=== PATIENT | female | born 2005 | race Caucasian/White ===

== ENCOUNTER 2023-03-09 11:04 | Emergency (ER) | payer OTHER, SELFPAY ==
[2023-03-09 11:19] VITALS: BP 121/77; PULSE 97; RESP 16; TEMP 36.5; O2SAT 100
--- NOTE | 2023-03-09 11:35 | ED.ABDPAIN ---
HPI - Abdominal Pain General Chief Complaint: Abdominal Pain Stated Complaint: Abdominal pain;Vaginal discomort;Nausea Source: patient and RN notes reviewed Mode of arrival: ambulatory Limitations: no limitations History of Present Illness HPI narrative: 17-year-old female presented for complaints of intermittent lower abdominal pain, intermittent nausea which she says is worse at night in the morning. Pain and frequent urination wake her from sleeping. Endorses burning at the end of urination. Onset 3 weeks. Endorses concern for ovarian cyst. She denies vomiting, diarrhea, constipation, flank pain, hematuria, fevers or chills; denies concern for std. LMP is current, states she is spotting. Hx appendectomy. Reports eating disorder/anorexia. Related Data Allergies Allergy/AdvReac Type Severity Reaction Status Date / Time amoxicillin Allergy Rash Verified 03/09/23 13:02 diphenhydramine Allergy Hives Verified 03/09/23 13:02 [From Benadryl] Review of Systems Review of Systems: CONSTITUTIONAL: Denies body aches, fever, chills ENT: Denies rhinorrhea, congestion CARDIOVASCULAR: Denies chest pain, palpitations, or edema. RESPIRATORY: Denies cough or dyspnea. GASTROINTESTINAL: Endorses abdominal pain, nausea, Denies vomiting, diarrhea, hematochezia, melena, hematemesis GENITOURINARY: Denies dysuria, hematuria, or CVA tenderness. SKIN: Denies rash, itching, or wounds. MUSCULOSKELETAL: Denies back pain, joint pain, or myalgia. NEUROLOGIC: Denies headache, numbness, tingling, or weakness. All systems reviewed & are unremarkable except as noted in HPI and below PMFSH Past Medical History Medical History Anorexia Headache Menorrhagia Migraine Neck pain Post concussion syndrome Scoliosis deformity of spine Vitamin D deficiency Surgical History Surgical History History of appendectomy Comments At time of signature, I have reviewed and agree with nursing past medical, surgical, social and family history unless otherwise noted. Please see nursing chart for further information. There is no relevant family history pertinent to the presenting complaint Exam Narrative: GENERAL: Well-appearing, and in no acute distress. EYES: EOMI. Conjunctivae normal. ENT: Mucous membranes pink and moist. CHEST: No respiratory distress. Clear to auscultation. HEART: Regular rate and rhythm. No murmur appreciated. Normal peripheral pulses. ABDOMEN: abd soft, nondistended, normal active bowel sounds. RLQ tenderness with palpation. No guarding, rebound tenderness, asymmetry or rigidity. No pulsatile masses. No organomegaly. Negative Bowden?s sign. No periumbilical tenderness. Good femoral pulses bilaterally. No hernia noted. EXTREMITIES: Normal range of motion. No edema. SKIN: Warm, dry, no rash. Capillary refill normal. Normal skin turgor. NEURO: No focal deficits. Alert and oriented x3. PSYCH: Normal affect. Course Course Emergency Course: Patient is aware of diagnosis, understands and agrees to treatment plan. Anticipatory guidance given. Patient agrees to follow-up as directed and is aware of reasons to seek care at the emergency department. Portions of this record may have been created with voice recognition software Level of Care: Express Care Visit Vital Signs Vital signs: Vital Signs Temperature 97.7 F 03/09/23 11:19 Pulse Rate 97 03/09/23 11:19 Respiratory Rate 16 03/09/23 11:19 Blood Pressure 121/77 03/09/23 11:19 Pulse Oximetry 100 03/09/23 11:19 Temperature 97.7 F 03/09/23 11:19 Pulse Rate 97 03/09/23 11:19 Respiratory Rate 16 03/09/23 11:19 Blood Pressure 121/77 03/09/23 11:19 Pulse Oximetry 100 03/09/23 11:19 Transfer Transfered to: [facility] Transportation: Other (Private vehicle) Transfer rationale: Pt is agreeable to transfer. Requests tr
== END 2023-03-09 12:20 | disposition short-term general hospital (02) ==
PROVIDERS: Emergency Provider Nurse Practitioner Family
DX: R10.31 Right lower quadrant pain (principal); M41.9 Scoliosis, unspecified
CPT/HCPCS: 81003; 81025; 87086; 87088; 87147; 99213; G0463

== ENCOUNTER 2023-03-09 12:38 | Emergency (ER) | payer OTHER, SELFPAY ==
--- NOTE | ~2023-03-09 | CT_ITS ---
EXAMINATION: CT abdomen pelvis w con DATE: 03/09/2023 13:50 INDICATION: Right lower quadrant abdominal pain. Menstrual cramping for 2 weeks. History of appendect lashon. TECHNIQUE: Computed tomography (CT) of the abdomen was performed with 100 CC Omnipaque 350 intravenou s contrast. Automated exposure control and iterative reconstruction technique were employed. Exam dos e: 416.76 mGy-cm total exam DLP. COMPARISON: None. FINDINGS: The lung bases are clear. Normal heart size. No pericardial or pleural effusion. The liver, gallbladder, bile ducts, pancreas, pancreatic duct, spleen, and adrenal glands and kidneys appear normal. No urinary tract calculus or hydroureteronephrosis. There is moderate diffuse thickening of the urinary bladder; recommend clinical correlation to exclud e cystitis. The uterus and adnexal areas are unremarkable. Normal caliber of the abdominal aorta. No intraperitoneal or retroperitoneal or pelvic mass lesion or adenopathy or ascites. Status post appendectomy. There are numerous nondilated fluid containing small bowel segments with scattered small bowel air-fl uid levels which may be due to enteritis or mild adynamic ileus. No bowel obstruction or intraperiton eal free air. Included skeletal structures are unremarkable. IMPRESSION: Nondilated fluid distended small bowel with air-fluid levels which may be due to enterit is or mild adynamic ileus; no bowel obstruction or free air Status post appendectomy Reviewed, dictated and finalized at [facility]. Reviewed, dictated and finalized at [facility]. IMPRESSION: Nondilated fluid distended small bowel with air-fluid levels which may be due to enteritis or mild adynamic ileus; no bowel obstruction or free a ir Status post appendectomy
[2023-03-09 12:40] VITALS: BP 120/69; PULSE 65; RESP 18; TEMP 36.2; O2SAT 100
--- NOTE | 2023-03-09 13:00 | ED.ABDPAIN ---
HPI - Abdominal Pain General Chief Complaint: Abdominal Pain Stated Complaint: RLQ abd pain - sent from UC - neg UA and neg preg Time Seen by Provider: 03/09/23 12:59 Source: patient Mode of arrival: ambulatory Limitations: no limitations History of Present Illness HPI narrative: 17 years old white female presents with intermittent right lower quadrant sharp stabbing pain, looks like menstrual cramps, started her. 2 days ago. Without improvement. She denies any fever, chills, nausea, vomiting, diarrhea, constipation, patient reported burning sensation at the end of her urination. Was seen at urgent care today with negative urine test and the . Referred to the emergency room for further evaluation. History of appendectomy. Related Data Allergies Allergy/AdvReac Type Severity Reaction Status Date / Time amoxicillin Allergy Rash Verified 03/09/23 13:02 diphenhydramine Allergy Hives Verified 03/09/23 13:02 [From Benadryl] Review of Systems Review of Systems: All systems reviewed & are unremarkable except as noted in HPI and below PMFSH Past Medical History Medical History Anorexia Headache Menorrhagia Migraine Neck pain Post concussion syndrome Scoliosis deformity of spine Vitamin D deficiency Surgical History Surgical History History of appendectomy Exam Narrative: General appearance: Well-developed, well-nourished Skin: Normal color Head: Normocephalic, nontraumatic Eyes: Clear conjunctiva ENT: Oropharynx normal, ears normal, nose normal Neck: Supple, nontender Chest and respiratory: Airway patent, no respiratory distress, no accessory muscle use Heart: Regular rate/rhythm Abdomen: Soft, slight tenderness to right lower quadrant, no rebound, no guarding no organomegaly, quiet bowel sounds Vascular: Normal peripheral pulses, normal capillary refill. Musculoskeletal: Normal range of motion, nontender back Neurologic: Alert and oriented ?3, FORMULATOR is normal as tested, no gross motor deficit Course Vital Signs Vital signs: Vital Signs Temperature 36.2 C L 03/09/23 12:40 Pulse Rate 65 03/09/23 12:40 Respiratory Rate 18 03/09/23 12:40 Blood Pressure 120/69 03/09/23 12:40 Pulse Oximetry 100 03/09/23 12:40 Oxygen Delivery Room Air 03/09/23 12:40 Temperature 36.2 C L 03/09/23 12:40 Pulse Rate 73 03/09/23 14:31 Respiratory Rate 12 03/09/23 14:31 Blood Pressure 115/71 03/09/23 14:31 Pulse Oximetry 100 03/09/23 14:31 Oxygen Delivery Room Air 03/09/23 12:40 MDM - Abdominal Pain Lab Data 03/09/23 13:01 03/09/23 13:01 Labs: Lab Results 03/09/23 03/09/23 Range/Units 13:01 13:33 WBC 7.2 (4.5-10.0) K/mm3 RBC 4.69 (4.2-5.4) M/mm3 Hgb 12.2 (12.0-15.0) g/dL Hct 38.4 (37.0-47.0) % MCV 81.9 (80-100) fl MCH 26.0 (26-34) pg MCHC 31.8 L (32-36) g/dl RDW 14.6 H (11.5-14.5) % Plt Count 276 (150-375) k/mm3 MPV 10.8 H (7.4-10.4) fl Immature Gran % (Auto) 0.4 (0-0.5) % Neut % (Auto) 60.4 (45.5-73.1) % Lymph % (Auto) 30.5 (18.3-44.2) % Meeker % (Auto) 6.3 (2.6-8.5) % Eos % (Auto) 1.7 (0-4.4) % Baso % (Auto) 0.7 (0.2-1.2) % Lymph # (Auto) 2.19 (0.9-3.2) K/mm3 [place] # (Auto) 0.5 (0.1-0.6) K/mm3 Eos # (Auto) 0.1 (0-0.3) K/mm3 Baso # (Auto) 0.1 (0.0-0.1) K/mm3 Abs Immat Gran (auto) 0.03 (0.00-0.031) K/mm3 Absolute Neuts (auto) 4.3 (1.3-6.7) K/mm3 Absolute Nucleated RBC 0.0 (0.0-0.012) K/mm3 Nucleated RBC % 0.0 (0.0-0.2) % Sodium 140 (134-143) mmol/
[2023-03-09 13:05] VITALS: BP 120/74; PULSE 75; RESP 13; O2SAT 99
[2023-03-09] MEDS: SODIUM CHLORIDE 0.9% IV 1,000 ML 999 ML IV CONT (13:14)
[2023-03-09 13:18] LABS: Alanine Aminotransferase 19 U/L (6-35); Albumin Level 4.7 g/dL (3.7-5.6); Alkaline Phosphatase 73 U/L (45-116); Anion Gap 9 mmol/L (8-16); Aspartate Amino Transferase 33 U/L (14-36); Bilirubin,Total 0.4 mg/dL (0.2-1.3); Blood Urea Nitrogen 8 mg/dL (8-21); Calcium 9.5 mg/dL (8.9-10.7); Carbon Dioxide 26 mmol/L (22-30); Chloride 105 mmol/L (98-107); Estimated CRCL calculation 125 ml/min; Estimated Glomerular Filt Rate > 60; Glucose 93 mg/dL (65-110); Lipase 53 U/L (23-300); Potassium 3.8 mmol/L (3.4-5.0); Sodium 140 mmol/L (134-143)
[2023-03-09 13:48] LABS: Hematocrit 38.4 % (37.0-47.0); Hemoglobin 12.2 g/dL (12.0-15.0); Mean Corpuscular Volume 81.9 fl (80-100); Red Blood Count 4.69 M/mm3 (4.2-5.4); White Blood Count 7.2 K/mm3 (4.5-10.0)
[2023-03-09 13:49] LABS: Basophils Percent Auto 0.7 % (0.2-1.2); Eosinophils Percent Auto 1.7 % (0-4.4); Immature Granulocyte Absolute 0.03 K/mm3 (0.00-0.031); Immature Granulocyte Percent A 0.4 % (0-0.5); Lymphocytes Percent Auto 30.5 % (18.3-44.2); Mean Corpuscular HGB Conc 31.8 g/dl (32-36); Mean Platelet Volume 10.8 fl (7.4-10.4); Monocytes Percent Auto 6.3 % (2.6-8.5); Neutrophils Percent Auto 60.4 % (45.5-73.1); Platelet Count Result 276 k/mm3 (150-375); Red Cell Distribution Width 14.6 % (11.5-14.5)
[2023-03-09 13:50] LABS: Basophils Absolute Auto 0.1 K/mm3 (0.0-0.1); Eosinophils Absolute Auto 0.1 K/mm3 (0-0.3); Lymphocytes Absolute Auto 2.19 K/mm3 (0.9-3.2); Monocytes Absolute Auto 0.5 K/mm3 (0.1-0.6); Neutrophils Absolute Auto 4.3 K/mm3 (1.3-6.7)
[2023-03-09 14:31] VITALS: BP 115/71; PULSE 73; RESP 12; O2SAT 100
[2023-03-09 14:32] LABS: Appearance Urine Clear (Clear); Bilirubin Urine Negative (Negative); Blood Urine Negative (Negative); Color Urine Yellow (Yellow); Glucose Urine UA Negative (Negative); Ketones Urine Negative (Negative); Leukocyte Esterase Ur Negative LEU/UL (Negative); Nitrate Urine Negative (Negative); Protein Urine Negative (Negative); Specific Grav Ur 1.005 (1.001-1.035); Urobilinogen Urine 0.2 mg/dL (<2.0)
[2023-03-09 14:37] LABS: Add Urine Microscopic? NO
== END 2023-03-09 15:48 | disposition home or self-care (01) ==
PROVIDERS: Emergency Provider Emergency Medicine
DX: K52.9 Noninfective gastroenteritis and colitis, unspecified (principal); K56.0 Paralytic ileus; E55.9 Vitamin D deficiency, unspecified; M41.9 Scoliosis, unspecified
CPT/HCPCS: 36415; 74177; 80053; 81003; 81025; 83690; 85025; 87086; 96360; 99213; 99284; G0463; J7030; Q9967

== ENCOUNTER 2023-06-25 12:29 | Emergency (ER) | payer OTHER, SELFPAY ==
[2023-06-25 12:40] VITALS: BP 118/74; PULSE 91; RESP 18; TEMP 36.9; O2SAT 98
--- NOTE | 2023-06-25 13:32 | ED.EYEPROB ---
HPI - Eye Problem General Chief complaint: Eye Problems Stated complaint: Eye Problems Time Seen by Provider: 06/25/23 13:15 Source: patient and RN notes reviewed Mode of arrival: ambulatory Limitations: no limitations History of Present Illness HPI Narrative: Patient presents today complaining of right eye redness and watering. Symptoms initially began 2 weeks ago, but improved after taking her contacts out, then worsened again 3 days ago. Patient has daily contacts, but has been wearing them for extended periods of time. She has had this current pair in for 1 week straight because she is running out and has not been to see an eye doctor in quite some time. She does not have an updated pair of glasses. History of corneal abrasions. Related Data Allergies Allergy/AdvReac Type Severity Reaction Status Date / Time amoxicillin Allergy Rash Verified 06/25/23 13:10 diphenhydramine Allergy Hives Verified 06/25/23 13:10 [From Benadryl] Review of Systems Review of Systems: CONSTITUTIONAL: Denies body aches, fever, chills, or sweats. EYES: + right eye redness and watering, photophobia ENT: Denies rhinorrhea, congestion, sore throat, or otalgia. CARDIOVASCULAR: Denies chest pain, palpitations, or edema. RESPIRATORY: Denies cough or dyspnea. GASTROINTESTINAL: Denies abdominal pain, nausea, vomiting, or diarrhea. GENITOURINARY: Denies dysuria or hematuria. SKIN: Denies rash, itching, or wounds. MUSCULOSKELETAL: Denies back pain, joint pain, or myalgia. NEUROLOGIC: Denies headache, numbness, tingling, or weakness. PSYCH: Denies depression or anxiety. [facility] Past Medical History Medical History Anorexia Headache Menorrhagia Migraine Neck pain Post concussion syndrome Scoliosis deformity of spine Vitamin D deficiency Surgical History Surgical History History of appendectomy Comments At time of signature, I have reviewed and agree with nursing past medical, surgical, social and family history unless otherwise noted. Please see nursing chart for further information. There is no relevant family history pertinent to the presenting complaint Exam Narrative: GENERAL: Well-appearing, well-nourished, and in no acute distress. HEAD: Normocephalic, atraumatic. EYES: EOMI. PERRL. Right eye: Moderately injected conjunctiva with chemosis and watering. Left eye normal. See procedure note ENT: Mucous membranes pink and moist. NECK: Normal AROM. CHEST: No respiratory distress. EXTREMITIES: Normal range of motion. No edema. SKIN: Warm, dry, no rash. Capillary refill normal. Normal skin turgor. NEURO: No focal deficits. Alert and oriented x3. Gait steady. PSYCH: Normal affect. No signs of depression or anxiety. Course Course Level of Care: Express Care Visit Vital Signs Vital signs: Vital Signs Temperature 98.4 F 06/25/23 12:40 Pulse Rate 91 06/25/23 12:40 Respiratory Rate 18 06/25/23 12:40 Blood Pressure 118/74 06/25/23 12:40 Pulse Oximetry 98 06/25/23 12:40 Oxygen Delivery Room Air 06/25/23 12:40 Temperature 98.4 F 06/25/23 12:40 Pulse Rate 91 06/25/23 12:40 Respiratory Rate 18 06/25/23 12:40 Blood Pressure 118/74 06/25/23 12:40 Pulse Oximetry 98 06/25/23 12:40 Oxygen Delivery Room Air 06/25/23 12:40 Reviewed Procedures Other Procedure Procedure 1: Other Procedure: Right eye was anesthetized with 1 drop of tetracaine and anesthesia was achieved. The eye was flushed with eye wash. Lid was inverted and examined. Moistened Qtip was used to sweep underneath the upper eyelid with 0 foreign bodies resulting. Cornea was dyed with fluorescein and 0 abrasions or ulcerations were noted. Pt tolerated procedure well. MDM - Eye Problem MDM Narrative Medical decision making narrative: No obvious corneal abrasion. Will treat
== END 2023-06-25 13:41 | disposition home or self-care (01) ==
PROVIDERS: Emergency Provider Nurse Practitioner
DX: H10.31 Unspecified acute conjunctivitis, right eye (principal)
CPT/HCPCS: 99213; A9270; G0463

== ENCOUNTER 2025-01-01 08:28 | Emergency (ER) | payer OTHER, SELFPAY ==
[2025-01-01 08:36] VITALS: BP 113/55; PULSE 118; RESP 16; TEMP 37.4; O2SAT 99
--- NOTE | 2025-01-01 08:44 | ED.URI ---
HPI - URI/Sore Throat General Chief Complaint: Upper Respiratory Infection Stated Complaint: SORE THROAT/SWOLLEN TONSILS/BODY ACHES/TIRED/MAR Time Seen by Provider: 01/01/25 08:44 History of Present Illness HPI Narrative: Twenty complaint sore throat, body aches, nausea, headache and fever last night. Reports temp up to 102. Endorses painful swallow and pus noted to the throat. Denies vomiting, diarrhea or shortness of breath. Related Data Home Medications ?Medication ?Instructions ?Recorded ?Confirmed ?Last Taken ?Type hydroxyzine HCl 25 mg tablet 25 mg PO DAILY PRN anxiety 01/01/25 01/01/25 Unknown History sertraline 100 mg tablet 150 mg PO Q24H 01/01/25 01/01/25 Unknown History trazodone 50 mg tablet 50 mg PO HS PRN sleep 01/01/25 01/01/25 Unknown History Allergies Allergy/AdvReac Type Severity Reaction Status Date / Time Sulfa (Sulfonamide Allergy Intermediate Itching Verified 01/01/25 08:38 Antibiotics) amoxicillin Allergy Rash Verified 01/01/25 08:38 diphenhydramine (From Allergy Hives Verified 01/01/25 08:38 Benadryl) Review of Systems Review of Systems: CONSTITUTIONAL: Reports body aches, fever, chills, or sweats. EYES: Denies visual changes, redness, or discharge. ENT: reports sore throat Denies rhinorrhea, congestion, or otalgia. CARDIOVASCULAR: Denies chest pain, palpitations, or edema. RESPIRATORY: Denies dyspnea. GASTROINTESTINAL: Reports nausea Denies abdominal pain, vomiting, or diarrhea. SKIN: Denies rash NEUROLOGIC: Reports headache PMFSH Past Medical History Medical History Anorexia Headache Menorrhagia Migraine Neck pain Post concussion syndrome Scoliosis deformity of spine Vitamin D deficiency Surgical History Surgical History History of appendectomy Exam Narrative: GENERAL: Ill-appearing, no acute distress. EYES: conjunctivae clear ENT: Mucous membranes moist. TM pearly eason with normal light reflex bilaterally; no tragal tenderness. Oropharynx erythematous without lesions. Tonsils enlarged 2+ with exudate. No drooling, no hoarseness, no trismus, uvula midline. No tripod positioning, hot potato voice, or soft palate swelling. NECK: Supple. No lymphadenopathy CHEST: Clear to auscultation, breath sounds equal. No respiratory distress, speaks in full sentences. HEART: Regular rate and rhythm. No murmur heard. SKIN: Warm, dry, no rash. NEURO: Alert and oriented x3. Course Course Emergency Course: Patient is aware of diagnosis, understands and agrees to treatment plan. Anticipatory guidance given. Patient agrees to follow-up as directed and is aware of reasons to seek care at the emergency department. Portions of this record may have been created with voice recognition software Level of Care: Express Care Visit Vital Signs Vital signs: Vital Signs Temperature 99.3 F 01/01/25 08:36 Pulse Rate 118 H 01/01/25 08:36 Respiratory Rate 16 01/01/25 08:36 Blood Pressure 113/55 L 01/01/25 08:36 Pulse Oximetry 99 01/01/25 08:36 Oxygen Delivery Room Air 01/01/25 08:36 Temperature 99.3 F 01/01/25 08:36 Pulse Rate 118 H 01/01/25 08:36 Respiratory Rate 16 01/01/25 08:36 Blood Pressure 113/55 L 01/01/25 08:36 Pulse Oximetry 99 01/01/25 08:36 Oxygen Delivery Room Air 01/01/25 08:36 MDM - URI/Sore Throat MDM Narrative Medical decision making narrative: Negative flu, COVID, and strep result reviewed with pt. will treat for strep based on physical chief complaint. PCN allergy. Advise supportive treatments. Patient is appropriate for outpatient treatment and follow-up. Differential Diagnosis Differential diagnosis: Likely upper respiratory infection, viral infection and pharyngitis Lab Data Labs: Lab Results 01/01/25 Range/Units 09:05 POC Influenza A Ag Negative (Negative) POC Influenza B Ag Negative (Negative) POC SARS CoV-2 Ag Negative (Negative) POC Grp A Strep Screen Negative (Negative) Discharge Plan Discharge Clinical Impression: Exudative tonsillitis Patient Disposition: Home Condition: Stable Instructions: Antibiotic Form, Strep Throat (ED) Additional Instructions: COVID and flu negative. - Take the antibiotic as directed. Fever and sore throat typically resolve within one to three days. -Most patients can return to work, school after 12 to 24 hours of antibiotic therapy, provided you are fever free and otherwise well. -Eat and drink things that are easy to swallow, like soft foods, cool liquids, tea with honey, or popsicles . -Salt water gargles and/or may use topical anesthetic ( Chloraseptic spray) or lozenges to relieve dryness or throat pain -Alternate Tylenol and ibuprofen as needed for pain and fever as directed. -Frequent hand washing or hand receiving coordinator is one of the best ways to prevent spread of infection. Throw away the toothbrush after 24hours of antibiotic. -Follow up with primary care provider in 2-3 days if condition is not improving -Go to the ER if you have trouble breathing, cannot drink enough fluids, have muffled voice or drooling, difficulty opening your mouth, or severe swelling. Patient Language: [place] Prescriptions: New cephalexin 500 mg capsule 500 mg PO Q12H 10 Days Qty: 20 0RF No Action ofloxacin 0.3 % drops See Rx Instructions .ROUTE .COMPLEX Qty: 10 0RF Rx Instructions: put 1-2 drps into affected eye(s) every 2-4 h x 2 days, then 1-2 drps 4 times/day days 3-7 sertraline 100 mg tablet 150 mg PO Q24H trazodone 50 mg tablet 50 mg PO HS PRN (Reason: sleep) hydroxyzine HCl 25 mg tablet 25 mg PO DAILY PRN (Reason: anxiety) Follow-up/Referrals: Qiu,Natalia [Other] Stand Alone Forms: Work/School Release IP Time of Disposition: 09:22
[2025-01-01 09:07] LABS: EDCOVIDSCREEN Negative (Negative); EDINFLUASCREEN Negative (Negative); EDINFLUBSCREEN Negative (Negative); EDSTREPNEGPOS1 Negative (Negative)
== END 2025-01-01 09:23 | disposition home or self-care (01) ==
PROVIDERS: Emergency Provider Nurse Practitioner Family
DX: J03.90 Acute tonsillitis, unspecified (principal); Z20.822 Contact with and (suspected) exposure to COVID-19; M41.9 Scoliosis, unspecified
CPT/HCPCS: 87081; 87426; 87804; 87880; 99213; G0463

== ENCOUNTER 2025-01-13 18:57 | Emergency (ER) | payer OTHER, SELFPAY ==
--- NOTE | 2025-01-13 19:00 | ED.URI ---
HPI - URI/Sore Throat General Chief Complaint: Upper Respiratory Infection Stated Complaint: Sore Throat Source: patient and RN notes reviewed Mode of arrival: ambulatory Limitations: no limitations History of Present Illness HPI Narrative: Patient is a 19-year-old female who presents to the [facility] with complaints of a sore throat. Patient states that she was seen here for similar symptoms on the . She states that her tonsils were very enlarged and inflamed at that time, she was placed on cephalexin for treatment of tonsillitis. Patient states that the antibiotic appeared to improve the symptoms but she finished the antibiotic on Sunday and her symptoms are already returning. She denies recent fevers. Denies trouble swallowing or trismus. Related Data Home Medications ?Medication ?Instructions ?Recorded ?Confirmed ?Last Taken ?Type hydroxyzine HCl 25 mg tablet 25 mg PO DAILY PRN anxiety 01/01/25 01/01/25 Unknown History sertraline 100 mg tablet 150 mg PO Q24H 01/01/25 01/01/25 Unknown History trazodone 50 mg tablet 50 mg PO HS PRN sleep 01/01/25 01/01/25 Unknown History Allergies Allergy/AdvReac Type Severity Reaction Status Date / Time Sulfa (Sulfonamide Allergy Intermediate Itching Verified 01/01/25 08:38 Antibiotics) amoxicillin Allergy Rash Verified 01/01/25 08:38 diphenhydramine (From Allergy Hives Verified 01/01/25 08:38 Benadryl) Review of Systems Review of Systems: CONSTITUTIONAL: Denies fever, chills, or sweats. EYES: Denies visual changes, redness, or discharge. ENT: Denies otalgia but reports sore throat. CARDIOVASCULAR: Denies chest pain, palpitations, or edema. RESPIRATORY: Denies cough or dyspnea. GASTROINTESTINAL: Denies abdominal pain, nausea, vomiting, or diarrhea. GENITOURINARY: Denies dysuria or hematuria. SKIN: Denies rash or itching. MUSCULOSKELETAL: Denies back pain, joint pain, or myalgia. NEUROLOGIC: Denies headache, numbness, or weakness. Pertinent positives per HPI. [facility] Past Medical History Medical History Anorexia Headache Scoliosis deformity of spine Neck pain Menorrhagia Migraine Post concussion syndrome Vitamin D deficiency Surgical History Surgical History History of appendectomy Comments At the time of my signature, I reviewed and agree with the nursing past medical, surgical, social, and family history. There is no relevant family history pertinent to the patient complaint. Exam Narrative: GENERAL: This is a well-nourished, well-developed patient, in no apparent distress. HEAD: normocephalic, atraumatic. EYES: Sclera clear/white. Vision is grossly intact. EARS: External ears normal. Hearing grossly intact. NOSE: External nose normal with no obvious nasal discharge, nares without redness, no rhinorrhea. THROAT: Mucous membranes moist, oropharyngeal erythema with exudate. NECK: Neck supple, non-tender without lymphadenopathy, masses or thyromegaly. CARDIOVASCULAR: Regular rate and rhythm without murmurs, gallops, or rubs. RESPIRATORY: Clear to auscultation. Breath sounds equal bilaterally. No wheezes, rales, or rhonchi. GASTROINTESTINAL: Abdomen soft, non-tender, nondistended. Bowel sounds are active. No hepato-splenomegaly, or palpable masses. No guarding. SKIN: warm, intact with no suspicious lesions or rash, good texture and turgor. NEURO: awake, alert, and oriented to person, place and time. There were no obvious focal neurologic abnormalities. Course Course Level of Care: Express Care Visit Vital Signs Vital signs: Vital Signs Temperature 97.7 F 01/13/25 19:21 Pulse Rate 86 01/13/25 19:21 Respiratory Rate 16 01/13/25 19:21 Blood Pressure 134/77 01/13/25 19:21 Pulse Oximetry 99 01/13/25 19:21 Temperature 97.7 F 01/13/25 19:21 Pulse Rate 86 01/13/25 19:21 Respiratory Rate 16 01/13/25 19:21 Blood Pressure 134/77 01/13/25 19:21 Pulse Oximetry 99 01/13/25 19:21 Reviewed MDM - URI/Sore Throat MDM Narrative Medical decision making narrative: After 24 hours on antibiotics throw tooth brush away and start using a new one. Increase your Vitamin C. Do not share drinks. Take Motrin alternating with Tylenol for pain and/or fever alternating every 4 hours. Increase fluids, avoid caffeine. Take a probiotic daily or eat a low sugar yogurt while taking the antibiotic. Follow up with Primary provider if not getting better this week Differential Diagnosis Differential diagnosis: Likely upper respiratory infection, viral infection, pharyngitis and other (strep, tonsillitis) Lab Data Attestation: I reviewed the patient's lab results. Labs: Lab Results 01/13/25 Range/Units 19:27 POC Grp A Strep Screen Negative (Negative) Critical Care Time Critical Care Time Critical Care Time: No Discharge Plan Discharge Clinical Impression: Acute bacterial tonsillitis Patient Disposition: Home Condition: Stable Instructions: Antibiotic Form, Tonsillitis (ED) Additional Instructions: After 24 hours on antibiotics throw tooth brush away and start using a new one. Increase your Vitamin C. Do not share drinks. Take Motrin alternating with Tylenol for pain and/or fever alternating every 4 hours. Increase fluids, avoid caffeine. Take a probiotic daily or eat a low sugar yogurt while taking the antibiotic. Follow-up with ENT as soon as possible. Patient Language: Sinhala Prescriptions: New clindamycin HCl [Cleocin HCl] 300 mg capsule 300 mg PO Q6H 10 Days Qty: 40 0RF No Action ofloxacin 0.3 % drops See Rx Instructions .ROUTE .COMPLEX Qty: 10 0RF Rx Instructions: put 1-2 drps into affected eye(s) every 2-4 h x 2 days, then 1-2 drps 4 times/day days 3-7 sertraline 100 mg tablet 150 mg PO Q24H trazodone 50 mg tablet 50 mg PO HS PRN (Reason: sleep) hydroxyzine HCl 25 mg tablet 25 mg PO DAILY PRN (Reason: anxiety) cephalexin 500 mg capsule 500 mg PO Q12H 10 Days Qty: 20 0RF Follow-up/Referrals: Bravo Hua MD [Physician, Ear, Nose, Throat] PHYSICIAN,DIGITAL CAMPAIGN SPECIALIST [Primary Care Provider, Internal Medicine] Time of Disposition: 19:34
[2025-01-13 19:21] VITALS: BP 134/77; PULSE 86; RESP 16; TEMP 36.5; O2SAT 99
[2025-01-13 19:29] LABS: EDSTREPNEGPOS1 Negative (Negative)
== END 2025-01-13 19:35 | disposition home or self-care (01) ==
PROVIDERS: Emergency Provider Nurse Practitioner
DX: J03.90 Acute tonsillitis, unspecified (principal)
CPT/HCPCS: 87081; 87880; 99213; G0463